=== PATIENT | male | born 1955 | race African-American/Black ===

== ENCOUNTER 2017-04-20 05:52 | Observation (INO) ==
[2017-04-20] MEDS ORDERED: ONDANSETRON 4 MG/2 ML VIAL IV PRN (06:04)
[2017-04-20] MEDS ORDERED: MORPHINE 2 MG/1 ML SYRINGE IV PRN (06:04)
[2017-04-20] MEDS ORDERED: NITROGLYCERIN 2% OINT 1 INCH/GM PACK TOP STA (06:04)
[2017-04-20] MEDS ORDERED: ASPIRIN 325 MG TABLET PO STA (06:04)
[2017-04-20] MEDS ORDERED: LABETALOL 20 MG/4 ML SYRINGE IV STA (06:05)
[2017-04-20] MEDS ORDERED: ENOXAPARIN 120 MG/0.8 ML SYRINGE SUBCUT STA (06:06)
--- NOTE | 2017-04-20 06:09 | Emergency Department Note ---
Arrival - Arrival Chief Complaint: Chest Pain Stated Complaint: chest pain ED Nursing Triage Note: Pt transfer from [facility] with c/o chest pain that started last night. Pt admits to smoking cocaine around 1999 last night. Pt Had elevated trop 0.18,ck-mb 20.3, [id number]. Pt rec'd nitro paste, nitro sublingual, toradol, gi cocktail x2. Mode of Arrival: Stretcher Limitations: No Limitations Source: Patient, Old Records Reviewed, RN Notes Reviewed Time Seen by Provider: 04/20/17 06:04 - History of Present Illness HPI Narrative: Patient is a 61-year-old black male transferred from [facility] for evaluation of chest pain. Patient admits drinking alcohol case of beer, doing cocaine, smoking marijuana, and smoking cigarettes all yesterday. The patient developed substernal chest pain which radiates to his left arm. Pain is not associated with shortness of breath or diaphoresis. Patient does have a history of hypertension. He denies any diabetes mellitus. Patient was seen [facility] and given Toradol and transferred to [place]. Based on previous troponin results here at [place] the patient runs a consistent 0.169 to 0.179 Onset (ago): hour(s) (6) Consistency: constant Severity: moderate Quality: cramping Allergies/Adverse Reactions: Allergies Allergy/AdvReac Type Severity Reaction Status Date / Time No Known Allergies Allergy Unverified 04/20/17 06:07 Home Medications: Home Medications Medication Instructions Recorded Confirmed Type Furosemide Tab [Lasix Tab] 40 mg PO DAILY 06/24/15 06/21/16 History Lisinopril 40 mg PO DAILY 06/24/15 06/21/16 History Aspirin [Ecotrin] 81 mg PO DAILY #30 tablet. 06/27/15 06/21/16 Rx PARoxetine [Paxil] 20 mg PO DAILY #30 tablet 06/27/15 06/21/16 Rx Potassium Chloride Cap/Tab [K Dur] 20 meq PO DAILY #30 tablet 06/27/15 06/21/16 Rx hydrALAZINE TAB [Apresoline Tab] 25 mg PO TID #100 tablet 06/27/15 06/21/16 Rx amLODIPine [Norvasc] 10 mg PO DAILY #30 tablet 06/22/16 Rx Review of System - Review of System 12 point system: reviewed and no additional remarkable complaints except as stated - Review of System Constitutional: Absent: chills, fever Respiratory: Absent: cough, respiratory distress Cardiovascular: Present: chest pain. Absent: palpitations Gastrointestinal: Absent: abdominal pain, nausea, vomiting Medical,Surgical,& Family Hx - Medical History Cardio: History of: CAD, Hypertension, Cardiovascular Problems (Chronically elevated troponin) Psychological: History of: Anxiety Disorders, Depression, Psychiatric/Substance Abuse Tx Respiratory: History of: Obstructive Sleep Apnea Renal: History of: Renal Problems (chronic renal insufficiency) - Surgical History Cardiac Surgeries: Sugical HX of: Cardiac Catheterization Orthopedic Surgeries: Surgical HX of;: Implanted Devices, Spinal Surgery (left and rt. knee replacement), Total Knee Replacement - Family History Family History: Reports;: Family Hypertension - Social History Smoking Status: Current every day smoker Have you smoked in the last 12 months: Yes Frequency of Alcohol Use: Frequently (Heavy) Type of Drug Use: Cocaine, Marijuana Cognitive Capacity: Patient states that he is disabled from total knee replacements and hypertension. Lives With:: Spouse Functional capacity: independent ambulation Exam Vital Signs: Vital Signs Temperature 97.9 F 04/20/17 05:59 Pulse Rate 98 H 04/20/17 05:59 Respiratory Rate 18 04/20/17 06:25 Blood Pressure 175/95 04/20/17 05:59 O2 Sat by Pulse Oximetry 96 04/20/17 05:59 GENERAL: This is a chronically ill-appearing black male in no apparent distress. VITAL SIGNS: Reviewed HEENT: Head is atraumatic and normocephalic. Pupils are equal round react to light. Extraocular movements are intact. Oropharynx is benign with moist mucous membranes. NECK: Neck is soft and supple without tenderness. There are no masses. There is no lymphadenopathy. LUNGS: Lungs are clear to auscultation. Chest rises symmetrically. There is no chest wall tenderness. CV: Heart is regular rate and rhythm without murmurs rubs or gallops. ABDOMEN: Abdomen is soft, nontender to palpation. There are no abdominal abnormal masses palpated. There is no organomegaly. Bowel sounds are present and active. SKIN: Skin is warm and dry. No rash. EXTREMITIES: Patient has full range of motion without tenderness. There is no pedal edema. NEUROLOGIC: Awake alert and oriented 4. Cranial nerves II through XII are grossly intact. Motor is 5 over 5 in all extremities bilaterally. Course - Consultations Consultation #1: Discussed with Dr. Miller. Patient will be admitted to his service. Dr. Miller will assume care upon patient's arrival to [facility]. Time: 07:29 Results - Labs CBC & BMP: 04/20/17 06:00 04/20/17 06:00 Lab Results: I have reviewed the patients labs Labs: Laboratory Tests 04/20/17 06:00 Troponin I 0.254 H - EKG EKG results: interpreted by ERMD - Impressions EKG: Sinus rhythm with a rate of 91, occasional supraventricular premature complexes, nonspecific ST-T wave changes - Diagnostic Findings Procedure: Chest x-ray: image reviewed by me (No infiltrates, no pleural effusions.) Disposition Clinical Impression: Chest pain, Essential hypertension, Cocaine abuse, Alcohol abuse, Nicotine addiction, Marijuana abuse, Unstable angina Case discussed with: patient Disposition: Still a Patient Condition: Stable Time of Disposition: 06:20
--- NOTE | 2017-04-20 06:09 | EKG Report ---
Stationary ECG Study [facility] ER Test Date: 04/20/2017 6:00:52 AM Pat Name: SJ JENKINS Department: Room: 286 Gender: M Ski Topper: : 1955 Requested by: Conrado Roper Order Number: [id number] Reading MD: NERY ROJAS Intervals [place] Rate: 91 P: 91 CT: 161 QRS: 185 QRSD: 106 T: 65 QT: 383 QTc: 432 Interpretive Statements SINUS RHYTHM WITH OCCASIONAL SUPRAVENTRICULAR PREMATURE COMPLEXES ARM LEADS REVERSED Electronically Signed On 04-22-17 13:54:05 CDT by NERY ROJAS [email or web address]
[2017-04-20] MEDS ORDERED: LABETALOL 20 MG/4 ML SYRINGE IV ONE (06:11)
[2017-04-20] MEDS ORDERED: ASPIRIN EC 325 MG TABLET PO ONE (06:11)
[2017-04-20] MEDS ORDERED: ENOXAPARIN 120 MG/0.8 ML SYRINGE SUBCUT ONE (06:11)
[2017-04-20] MEDS ORDERED: NITROGLYCERIN 2% OINT 1 INCH/GM PACK TOP ONE (06:11)
[2017-04-20] MEDS ORDERED: ASPIRIN 325 MG TABLET ONE (06:14)
--- NOTE | 2017-04-20 06:17 | EKG Report ---
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
[2017-04-20 06:27] LABS: Basophils % 0.4 % (0.0-0.8); Eosinophils % 0.6 % (0.00-10.9); Hematocrit 44.8 VOL% (42.0-52.0); Hemoglobin 15.8 GM/DL (14.0-18.0); Immature Granulocytes % 0.3 %; Immature Granulocytes Absolute 0.02 #; Lymphocytes # 2.8 10*3/uL (1.4-4.0); Lymphocytes % 41.2 % (21.2-54.2); Mean Corpuscular HGB Conc 35.3 GM/DL (32-36); Mean Corpuscular Hemoglobin 31 PG (27-34); Mean Corpuscular Volume 88.5 FL (87-102); Mean Platelet Volume 10.4 FL (9.6-12.0); Monocytes # 1.1 10*3/uL (0.11-0.8); Monocytes % 16.4 % (1.7-12.7); Neutrophils # 2.8 10*3/uL (1.4-7.4); Neutrophils % 41.1 % (38.7-73.9); Platelet Count 207 T/CUMM (130-400); Red Blood Count 5.06 MC/CUMM (3.8-5.5); Red Cell Distribution Width 14.9 % (9.3-17.3); White Blood Count 6.7 T/CUMM (4-12)
[2017-04-20 06:37] LABS: INR 1.1; PT Patient Result 11.7 SECS; Partial Thromboplastin Time 31.3 SECS (0-40)
[2017-04-20 06:54] LABS: Albumin 3.6 G/DL (3.4-5.0); Bilirubin,Total 1.3 MG/DL (0.2-1.0); Osmolality,Calculated 276.5 MOS/KG (273-304); Potassium 3.2 MMOL/L (3.5-5.1); Total Protein 7.1 G/DL (6.4-8.3)
[2017-04-20 06:57] LABS: Eosinophils 1 % (0-10); Hypochromasia 1+; Lymphocytes 37 % (20-55); Platelet Estimate Normal; Segmented Neutrophils 46 % (50-85); Total Cells Counted 100
[2017-04-20] MEDS ORDERED: NITROGLYCERIN SL 0.4 MG TABLET SL PRN (07:39)
[2017-04-20] MEDS ORDERED: MAGNESIUM SULF RIDER 4 GM in PREMIX 1 EACH IV PRN (08:42)
[2017-04-20] MEDS ORDERED: MAGNESIUM SULF RIDER 2 GM in PREMIX 1 EACH IV PRN (08:42)
[2017-04-20] MEDS: SODIUM CHLORIDE 0.9% 1,000 ML IV SCH ×2 (09:26→16:17)
--- NOTE | 2017-04-20 10:52 | EKG Report ---
Stationary ECG Study [facility] Test Date: 04/20/2017 9:04:56 AM Pat Name: SJ JENKINS Department: Room: 286 Gender: M Patient Access Coordinator: : 1955 Requested by: Conrado Roper Order Number: [id number] Reading MD: JATIN KUO Intervals [place] Rate: 76 P: 98 VT: 162 QRS: 32 QRSD: 102 T: 130 QT: 437 QTc: 468 Interpretive Statements SINUS RHYTHM ST DEVIATION AND MODERATE T-WAVE ABNORMALITY, CONSIDER ANTEROLATERAL ISCHEMIA Electronically Signed On 04-23-17 12:47:49 CDT by JATIN KUO [email or web address]
[2017-04-20] MEDS ORDERED: NITROGLYCERIN 2% OINT 1 INCH/GM PACK TOP SCH (12:00)
--- NOTE | 2017-04-20 12:50 | Cardiology History & Physical ---
Assessment and Plan (1) Chest pain Status: Acute Assessment and plan: This appears to be secondary to the patient's cocaine and other substance abuse. We will rule out myocardial infarction. He had cardiac catheterization with a similar presentation a couple of years ago did not show any significant coronary artery disease. We discussed the implications of his substance abuse today. Current Visit: Yes (2) Abnormal cardiac enzyme level Status: Resolved Assessment and plan: The patient's cardiac enzymes usually have a troponin of around 0.2. That is not significantly changed this time. This is probably related to his cocaine abuse. Current Visit: No (3) Alcohol abuse Status: Acute Current Visit: Yes (4) Cocaine abuse Status: Acute Current Visit: Yes (5) Marijuana abuse Status: Acute Current Visit: Yes (6) Nicotine addiction Status: Acute Current Visit: Yes (7) Cocaine abuse Status: Acute Current Visit: No (8) HTN (hypertension) Problem details: Uncontrolled Status: Chronic Current Visit: No (9) Noncompliance Problem details: Admits to not taking medications as prescribed or 2 following up regularly with his doctor Status: Chronic Current Visit: No History of Present Illness History of present illness: Mr. Acevedo is a 61 year old male with a history of hypertension and polysubstance abuse. He has seen Dr. Stahl in the past. Patient came into the hospital a couple of years ago with hypertension, medication noncompliance, and drug use including cocaine and cannabinoids. He was having some chest pain and some mildly elevated cardiac enzymes associated with his drug use and had cardiac catheterization at that time. He had angiographically normal coronary arteries and his left ventricular systolic function was greater than 70%. Unfortunately, the patient "relapsed" using multiple substances, including cocaine, opiates, and cannabinoids and once again this caused chest pain symptoms. This is in the left upper chest. Symptoms are moderate in severity and transiently resolved. At the time I was seeing him he was not having any ongoing chest discomfort. He was essentially feeling back to normal. The patient believes that his symptoms are secondary to his relapse using cocaine. He denies any palpitations or syncope. He denies any fever, chills, or cough. He denies any orthopnea, PND, or peripheral edema. Home Medications Medication Instructions Recorded Confirmed Type Furosemide Tab [Lasix Tab] 40 mg PO DAILY 06/24/15 06/21/16 History Lisinopril 40 mg PO DAILY 06/24/15 06/21/16 History Aspirin [Ecotrin] 81 mg PO DAILY #30 tablet. 06/27/15 06/21/16 Rx PARoxetine [Paxil] 20 mg PO DAILY #30 tablet 06/27/15 06/21/16 Rx Potassium Chloride Cap/Tab [K Dur] 20 meq PO DAILY #30 tablet 06/27/15 06/21/16 Rx hydrALAZINE TAB [Apresoline Tab] 25 mg PO TID #100 tablet 06/27/15 06/21/16 Rx amLODIPine [Norvasc] 10 mg PO DAILY #30 tablet 06/22/16 Rx Home Medications Medication Instructions Recorded Confirmed Type Furosemide Tab [Lasix Tab] 40 mg PO DAILY 06/24/15 06/21/16 History Lisinopril 40 mg PO DAILY 06/24/15 06/21/16 History Aspirin [Ecotrin] 81 mg PO DAILY #30 tablet. 06/27/15 06/21/16 Rx PARoxetine [Paxil] 20 mg PO DAILY #30 tablet 06/27/15 06/21/16 Rx Potassium Chloride Cap/Tab [K Dur] 20 meq PO DAILY #30 tablet 06/27/15 06/21/16 Rx hydrALAZINE TAB [Apresoline Tab] 25 mg PO TID #100 tablet 06/27/15 06/21/16 Rx amLODIPine [Norvasc] 10 mg PO DAILY #30 tablet 06/22/16 Rx Allergies Allergy/AdvReac Type Severity Reaction Status Date / Time No Known Allergies Allergy Unverified 04/20/17 06:07 12 point system: reviewed and no additional remarkable complaints except as stated Medical,Surgical,& Family Hx - Medical History Cardio: History of: CAD, Hypertension, Cardiovascular Problems (Chronically elevated troponin) No history of: Valvular Heart Disease Psychological: History of: Anxiety Disorders, Depression, Psychiatric/Substance Abuse Tx Respiratory: History of: Obstructive Sleep Apnea Renal: History of: Renal Problems (chronic renal insufficiency) Musculoskeletal: No history of: Amputation, Back/Neck Problems, Degenerative Disk Disease, Herniated Disk, Osteoporosis - Surgical History Cardiac Surgeries: Sugical HX of: Cardiac Catheterization Patient Denies: Femoral-Popliteal Bypass Graft, Cardiac Surgery, Carotid Endarterectomy, Internal Defibrillator, Vascular Access Devices Thoracic Surgeries: Patient denies;: Lobectomy Neurologic Surgeries: Patient denies: Neurologic Surgery HEENT Surgeries: Patient denies: Carotid Endarterectomy Abdominal Surgeries: Patient denies: Abdominal Surgery, Splenectomy Orthopedic Surgeries: Surgical HX of;: Implanted Devices, Spinal Surgery (left and rt. knee replacement), Total Knee Replacement Patient denies;: Total Hip Replacement - Family History Family History: Reports;: Family Hypertension Denies;: Family Cancer, Family Diabetes, Family Heart Disease, Family Stroke - Social History Smoking Status: Current every day smoker Frequency of Alcohol Use: Frequently Type of Drug Use: Cocaine, Marijuana Cardiology Physical Exam - Constitutional Vitals: Vital Signs Temp Pulse Resp BP Pulse Ox 98.1 F 76 18 162/97 98 04/20/17 11:54 04/20/17 11:54 04/20/17 11:54 04/20/17 11:54 04/20/17 11:54 Intake and Output 04/19/17 04/20/17 04/20/17 23:59 07:59 15:59 Other: Weight 117.934 kg 121.818 kg Patient Weight 04/20/17 23:59 Weight 121.818 kg Exam: General: Appears well developed, well nourished, no apparent distress HEENT: Normocephalic, atraumatic Neck: Supple Neck, Midline Trachea, No Bruit, No JVD Cardiac: Regular rhythm, No Murmur, no gallop, no rub Lungs: Clear to auscultation, No Wheeze, Rales, Rhonchi Neuro: Cranial Nerve 2-12 Intact, Motor Function Grossly Intact Abdomen: Soft, Active Bowel Sounds, No Masses, No Pulsations/Bruits Skin: Normal color, no rash Extremities: No Clubbing, No Cyanosis, No Edema, Normal Upper Extr. Pulses Musculoskeletal: No acute abnormality noted Psychiatric: The patient does not appear to be anxious or depressed Result/EKG - Labs CBC & BMP: 04/20/17 06:00 04/20/17 06:00 Lab Results: I have reviewed the past 24 hour labs Labs: Laboratory Results - last 24 hr 04/20/17 04/20/17 04/20/17 06:00 06:00 06:00 WBC 6.7 RBC 5.06 Hgb 15.8 Hct 44.8 MCV 88.5 MCH 31 MCHC 35.3 RDW 14.9 Plt Count 207 MPV 10.4 Neut % (Auto) 41.1 Lymph % (Auto) 41.2 [place] % (Auto) 16.4 H Eos % (Auto) 0.6 Baso % (Auto) 0.4 Neut # (Auto) 2.8 Lymph # (Auto) 2.8 [place] # (Auto) 1.1 H Eos # (Auto) 0.0 Baso # (Auto) 0.0 Total Counted 100 Immature Gran % 0.3 Nucleated RBC % 0.0 Immature Gran # 0.02 Segmented Neutrophils 46 L Lymphocytes 37 Monocytes 16 H Eosinophils 1 Nucleated RBCs # 0.00 Platelet Estimate Normal Hypochromasia 1+ INR 1.1 PT Patient/Control Mix 11.7 Circ Anticoag PTT 31.3 Sodium 139 Potassium 3.2 L Chloride 101 Carbon Dioxide 29 Anion Gap 12.2 BUN 13 Creatinine 1.20 GFR Calculation 107 BUN/Creatinine Ratio 10.00 Glucose 90 Calculated Osmolality 276.5 Calcium 8.0 L Total Bilirubin 1.30 H AST 37 ALT 21 Alkaline Phosphatase 59 Troponin I Total Protein 7.1 Albumin 3.6 Globulin 3.5 Albumin/Globulin Ratio 1.0 L 04/20/17 04/20/17 06:00 09:15 WBC RBC Hgb Hct MCV MCH MCHC RDW Plt Count MPV Neut % (Auto) Lymph % (Auto) [place] % (Auto) Eos % (Auto) Baso % (Auto) Neut # (Auto) Lymph # (Auto) [place] # (Auto) Eos # (Auto) Baso # (Auto) Total Counted Immature Gran % Nucleated RBC % Immature Gran # Segmented Neutrophils Lymphocytes Monocytes Eosinophils Nucleated RBCs # Platelet Estimate Hypochromasia INR PT Patient/Control Mix Circ Anticoag PTT Sodium Potassium Chloride Carbon Dioxide Anion Gap BUN Creatinine GFR Calculation BUN/Creatinine Ratio Glucose Calculated Osmolality Calcium Total Bilirubin AST ALT Alkaline Phosphatase Troponin I 0.254 H 0.206 H Total Protein Albumin Globulin Albumin/Globulin Ratio - EKG EKG results: interpreted by me Quality Measures - Stroke Symptom Onset Unknown: No
--- NOTE | 2017-04-20 12:51 | XRay Report ---
Exam: XR chest 2V Indication: Chest pain , cardiomegaly Comparison study: June 22, 2016 Findings: Cardiac silhouette is mildly enlarged, similar to prior. Mediastinal contours appear within normal limits. Mild elevation left hemidiaphragm is similar to prior. There is no focal consolidation, pneumothorax or pleural effusion identified. There is improved aeration within the perihilar regions and lung bases, which may represent resolution of interstitial edema. Impression: No acute cardiopulmonary process. Slight improved aeration within the lung bases when compared to prior. Otherwise, no significant change from prior. PROCEDURE INTERPRETED AT [facility] DEPARTMENT OF RADIOLOGY Final Report Signed by: Anderson Allan
[2017-04-20] MEDS ORDERED: POTASSIUM CHLORIDE 20 MEQ TABLET PO ONE (14:08)
[2017-04-20] MEDS: LISINOPRIL 20 MG TABLET PO SCH (16:16)
[2017-04-20] MEDS: POTASSIUM CHLORIDE 20 MEQ TABLET PO SCH (16:16)
[2017-04-20] MEDS: CLORAZEPATE 7.5 MG TABLET PO SCH ×2 (17:44→21:31)
[2017-04-20] MEDS ORDERED: ENOXAPARIN 120 MG/0.8 ML SYRINGE SUBCUT SCH (21:00)
[2017-04-21] MEDS: SODIUM CHLORIDE 0.9% 1,000 ML IV SCH ×2 (00:32→08:48)
[2017-04-21 05:01] LABS: Risk Ratio 3.34; VLDL CHOLESTEROL 19.6 MG/DL
[2017-04-21] MEDS: CLORAZEPATE 7.5 MG TABLET PO SCH ×2 (08:48→14:24)
[2017-04-21] MEDS: POTASSIUM CHLORIDE 20 MEQ TABLET PO SCH (08:48)
[2017-04-21] MEDS: LISINOPRIL 20 MG TABLET PO SCH (08:49)
[2017-04-21] MEDS ORDERED: ASPIRIN EC 81 MG TABLET PO SCH (09:00)
[2017-04-21] MEDS ORDERED: PARoxetine 20 MG TABLET PO SCH (09:00)
[2017-04-21] MEDS ORDERED: amLODIPine 10 MG TABLET PO SCH (09:00)
--- NOTE | 2017-04-21 12:55 | Discharge Summary ---
Hospital Course - Hospital Course Hospital Course: The patient is a 61-year-old male with a history of hypertension and polysubstance abuse. He has seen Dr. Stahl in the past. In 2014 he came into the hospital with chest pain symptoms after using multiple drugs including cocaine. He had a mildly elevated cardiac enzyme level and cardiac catheterization was performed. At that time he had angiographically normal coronary arteries and normal left ventricular systolic function at greater than 70% ejection fraction. The patient came into the hospital at this time with a "relapse" of using cocaine, opiates, and cannabinoids. This once again produced chest pain symptoms. He had a very slight bump in cardiac enzymes ( troponin 0.254) at the time of his hospital admission which subsequently fell over the course of his hospital stay. He had no further episodes of chest discomfort or other complaints. He is feeling back to normal. In light of the fact that he had a similar presentation less than 2 years ago with cardiac catheterization which was normal, and we know the precipitating cause of his symptoms, I do not think repeat cardiac evaluation is required at this time. Of note, his potassium was quite low at the time of admission. He is on Lasix as an outpatient. Since he had normal left ventricular systolic function, I think we can stop this medication. I have counseled the patient on avoiding the illicit drugs that seem to be producing his symptom. I think he is stable for discharge home. I think he can follow-up with his primary physician on a routine basis. Diagnosis - Discharge Diagnosis (1) Chest pain Status: Acute (2) Abnormal cardiac enzyme level Status: Resolved (3) Alcohol abuse Status: Acute (4) Cocaine abuse Status: Acute (5) Marijuana abuse Status: Acute (6) Nicotine addiction Status: Acute (7) Cocaine abuse Status: Acute (8) HTN (hypertension) Status: Chronic (9) Noncompliance Status: Chronic Discharge Plan - Discharge Data Disposition: Disch To Home/Self Care - Discharge Medications Continue Lisinopril 40 mg PO DAILY hydrALAZINE TAB [Apresoline Tab] 25 mg PO TID #100 tablet Potassium Chloride Cap/Tab [K Dur] 20 meq PO DAILY #30 tablet PARoxetine [Paxil] 20 mg PO DAILY #30 tablet Aspirin [Ecotrin] 81 mg PO DAILY #30 tablet. amLODIPine [Norvasc] 10 mg PO DAILY #30 tablet Discontinued Furosemide Tab [Lasix Tab] 40 mg PO DAILY - Follow Up or Referral - Forms/Instructions Exam - Constitutional Vitals: Period Temp Pulse Resp BP Sys/[place] Pulse Ox Last 24 Hr 96.2 F-99.2 F 18-76 16-20 140-182/83-115 94-98 Discharge Results Labs on day of discharge: Labs from last 24 hours 04/21/17 04/20/17 03:44 12:23 Troponin I 0.177 H Triglycerides 98 Cholesterol 127 LDL Cholesterol 83.0 VLDL Cholesterol 19.6 HDL Cholesterol 38 L Heart Disease Risk Ratio 3.34 DS: Provider Date of admission: 04/20/17 07:36 Primary care physician: . No PCP Attending physician on admission: George Miller MD Discharging clinician: George Miller MD
[2017-04-21 13:12] VITALS: BP 198/119
[2017-04-21] MEDS ORDERED: cloNIDine 0.1 MG TABLET PO ONE (14:16)
--- NOTE | 2017-04-23 12:52 | EKG Report ---
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
== END 2017-04-21 17:41 | disposition home or self-care (01) ==
LOC: EDUNIT# → EDBD → N.EDINP 05:52 → N.ED 05:52 → N.TELEN 08:11
PROVIDERS: ADMIT Internal Medicine Cardiovascular Disease; ATTEND Internal Medicine Cardiovascular Disease

== ENCOUNTER 2021-02-22 01:57 | Inpatient (IN) ==
[2021-02-22] MEDS ORDERED: DEXTROSE 50% 25 GM/50 ML VIAL IV PRN (03:36)
[2021-02-22] MEDS ORDERED: ACETAMINOPHEN 325 MG TABLET PO PRN (03:36)
[2021-02-22] MEDS ORDERED: MORPHINE 4 MG/1 ML VIAL IV PRN (03:36)
[2021-02-22] MEDS ORDERED: ONDANSETRON 4 MG/2 ML VIAL IV PRN (03:36)
[2021-02-22] MEDS ORDERED: GLUCAGON 1 MG VIAL IM PRN (03:36)
[2021-02-22] MEDS ORDERED: hydrALAZINE 20 MG/1 ML VIAL IV PRN (03:47)
[2021-02-22] MEDS ORDERED: POTASSIUM CHLORIDE 20 MEQ TABLET PO ONE ×2 (04:31→10:24)
[2021-02-22 07:42] LABS: Barbiturates Screen,Urine Negative (Negative); Benzodiazepines Screen,Urine Negative (Negative); Cannabinoid Screen,Urine Negative (Negative); Opiate Screen,Urine Positive (Negative); Phencyclidine Screen,Urine Negative (Negative)
[2021-02-22 07:43] LABS: Basophils % 0.4 % (0.0-0.8); Eosinophils # 0.2 10*3/uL (0.0-0.87); Eosinophils % 2.6 % (0.00-10.9); Hematocrit 38.4 VOL% (42.0-52.0); Hemoglobin 13.4 GM/DL (14.0-18.0); Immature Granulocytes % 0.3 %; Immature Granulocytes Absolute 0.02 #; Lymphocytes # 2.3 10*3/uL (1.4-4.0); Lymphocytes % 31.5 % (21.2-54.2); Mean Corpuscular HGB Conc 34.9 GM/DL (32-36); Mean Corpuscular Volume 87.1 FL (87-102); Mean Platelet Volume 9.3 FL (9.6-12.0); Monocytes % 13.7 % (1.7-12.7); Neutrophils % 51.5 % (38.7-73.9); Platelet Count 279 T/CUMM (130-400); Red Blood Count 4.41 MC/CUMM (3.8-5.5); Red Cell Distribution Width 16.4 % (9.3-17.3); White Blood Count 7.4 T/CUMM (4-12)
[2021-02-22 08:02] LABS: Albumin 2.9 G/DL (3.4-5.0); Bilirubin,Total 1.5 MG/DL (0.2-1.0); Calcium 8.1 MG/DL (8.5-10.1); Osmolality,Calculated 281.5 MOS/KG (273-304); Potassium 3.2 MMOL/L (3.5-5.1); Total Protein 7.1 G/DL (6.4-8.2)
[2021-02-22 08:03] LABS: Risk Ratio 4.17
[2021-02-22] MEDS: PANTOPRAZOLE 40 MG TABLET PO SCH (08:28)
[2021-02-22] MEDS ORDERED: cloNIDine 0.1 MG TABLET PO PRN (09:12)
[2021-02-22] MEDS ORDERED: FUROSEMIDE 40 MG/4 ML VIAL IV ONE (10:28)
[2021-02-22] MEDS ORDERED: ASPIRIN EC 325 MG TABLET PO SCH (10:33)
[2021-02-22] MEDS: DOXAZOSIN 1 MG TABLET PO SCH (20:53)
[2021-02-23] MEDS ORDERED: ZALEPLON 5 MG CAPSULE ONE (01:30)
[2021-02-23] MEDS: ZALEPLON 5 MG CAPSULE PO SCH ×2 (01:32→20:30)
[2021-02-23 05:21] LABS: Basophils % 0.2 % (0.0-0.8); Eosinophils # 0.2 10*3/uL (0.0-0.87); Eosinophils % 3.5 % (0.00-10.9); Hematocrit 38.1 VOL% (42.0-52.0); Immature Granulocytes % 0.2 %; Immature Granulocytes Absolute 0.01 #; Lymphocytes # 2.4 10*3/uL (1.4-4.0); Lymphocytes % 35.5 % (21.2-54.2); Mean Corpuscular HGB Conc 34.1 GM/DL (32-36); Mean Platelet Volume 9.6 FL (9.6-12.0); Neutrophils % 48.6 % (38.7-73.9); Platelet Count 284 T/CUMM (130-400); Red Blood Count 4.28 MC/CUMM (3.8-5.5); Red Cell Distribution Width 16.7 % (9.3-17.3); White Blood Count 6.7 T/CUMM (4-12)
[2021-02-23 05:37] LABS: Calcium 8.2 MG/DL (8.5-10.1); Potassium 3.3 MMOL/L (3.5-5.1)
[2021-02-23] MEDS: POTASSIUM CHLORIDE 20 MEQ TABLET PO PRN ×2 (06:10→06:59)
[2021-02-23] MEDS ORDERED: DIGOXIN 0.5 MG/2 ML AMP IV ONE ×2 (08:18→13:30)
[2021-02-23] MEDS ORDERED: LORazepam 2 MG/1 ML VIAL IV ONE ×2 (08:22→13:30)
[2021-02-23] MEDS ORDERED: POTASSIUM CHLORIDE 20 MEQ TABLET PO ONE (08:23)
[2021-02-23] MEDS ORDERED: BISACODYL 5 MG TABLET PO ONE (08:34)
[2021-02-23] MEDS ORDERED: DILTIAZEM CD 120 MG CAPSULE PO ONE (08:44)
[2021-02-23] MEDS: PANTOPRAZOLE 40 MG TABLET PO SCH (08:58)
[2021-02-23] MEDS: APIXABAN 5 MG TABLET PO SCH ×2 (08:58→20:09)
[2021-02-23] MEDS ORDERED: METHOCARBAMOL 750 MG TABLET PO PRN (09:12)
[2021-02-23] MEDS ORDERED: rOPINIRole 0.25 MG TABLET PO PRN (09:12)
[2021-02-23] MEDS ORDERED: HydrOXYzine PAMOATE 25 MG CAPSULE PO PRN (09:12)
[2021-02-23] MEDS ORDERED: diphenhydrAMINE 50 MG/1 ML VIAL IV PRN (09:12)
[2021-02-23] MEDS ORDERED: FUROSEMIDE 40 MG/4 ML VIAL IV ONE (09:23)
[2021-02-23] MEDS: LORazepam 1 MG TABLET PO SCH ×4 (09:33→20:30)
[2021-02-23] MEDS: DILTIAZEM INJ 100 MG in SODIUM CHLORIDE 0.9% 100 ML IV SCH ×2 (10:00→15:10)
[2021-02-23] MEDS ORDERED: DILTIAZEM CD 240 MG CAPSULE PO SCH (10:00)
[2021-02-23] MEDS: THIAMINE 200 MG/2 ML VIAL IV SCH (10:15)
[2021-02-23] MEDS: FOLIC ACID 1 MG TABLET PO SCH (10:15)
[2021-02-23 10:28] LABS: Folate 12.7 NG/ML (5.38-24.0)
[2021-02-23] MEDS: DOXAZOSIN 1 MG TABLET PO SCH (20:09)
[2021-02-24] MEDS: LORazepam 1 MG TABLET PO SCH ×3 (01:32→03:30)
[2021-02-24] MEDS: DILTIAZEM INJ 100 MG in SODIUM CHLORIDE 0.9% 100 ML IV SCH ×2 (03:25→10:27)
[2021-02-24 06:25] LABS: Basophils % 0.3 % (0.0-0.8); Eosinophils # 0.1 10*3/uL (0.0-0.87); Hematocrit 41.1 VOL% (42.0-52.0); Hemoglobin 14.3 GM/DL (14.0-18.0); Immature Granulocytes % 0.3 %; Immature Granulocytes Absolute 0.02 #; Lymphocytes # 1.4 10*3/uL (1.4-4.0); Lymphocytes % 17.4 % (21.2-54.2); Mean Corpuscular HGB Conc 34.8 GM/DL (32-36); Mean Corpuscular Volume 87.6 FL (87-102); Mean Platelet Volume 9.1 FL (9.6-12.0); Monocytes % 13.8 % (1.7-12.7); Neutrophils % 67.2 % (38.7-73.9); Platelet Count 279 T/CUMM (130-400); Red Blood Count 4.69 MC/CUMM (3.8-5.5); Red Cell Distribution Width 16.1 % (9.3-17.3); White Blood Count 7.9 T/CUMM (4-12)
[2021-02-24 06:33] LABS: Calcium 8.6 MG/DL (8.5-10.1); Osmolality,Calculated 275.7 MOS/KG (273-304); Potassium 3.3 MMOL/L (3.5-5.1)
[2021-02-24] MEDS ORDERED: POTASSIUM CHLORIDE 20 MEQ TABLET PO ONE (06:57)
[2021-02-24] MEDS ORDERED: MAGNESIUM SULF RIDER 4 GM in PREMIX 1 EACH IV ONE (06:57)
[2021-02-24] MEDS ORDERED: chlordiazePOXIDE 25 MG CAPSULE PO SCH (08:00)
[2021-02-24] MEDS: APIXABAN 5 MG TABLET PO SCH ×2 (09:00→20:39)
[2021-02-24] MEDS: FOLIC ACID 1 MG TABLET PO SCH (09:00)
[2021-02-24] MEDS ORDERED: DILTIAZEM CD 180 MG CAPSULE PO SCH (09:00)
[2021-02-24] MEDS: PANTOPRAZOLE 40 MG TABLET PO SCH (09:01)
[2021-02-24] MEDS: MIRTAZAPINE 15 MG TABLET PO SCH (09:01)
[2021-02-24] MEDS: THIAMINE 200 MG/2 ML VIAL IV SCH (09:01)
[2021-02-24] MEDS: MAGNESIUM OXIDE 400 MG TABLET PO SCH ×3 (09:40→20:39)
[2021-02-24] MEDS ORDERED: DIGOXIN 0.5 MG/2 ML AMP IV ONE ×2 (09:55→19:00)
[2021-02-24] MEDS: DILTIAZEM 90 MG TABLET PO SCH ×3 (11:52→23:54)
[2021-02-24] MEDS: POTASSIUM CHLORIDE 20 MEQ TABLET PO PRN (11:52)
[2021-02-24] MEDS: chlordiazePOXIDE 25 MG CAPSULE PO SCH ×3 (11:53→23:54)
[2021-02-24] MEDS ORDERED: FUROSEMIDE 40 MG/4 ML VIAL IV ONE (14:04)
[2021-02-24] MEDS: ZALEPLON 5 MG CAPSULE PO SCH (20:39)
[2021-02-24] MEDS: DOXAZOSIN 1 MG TABLET PO SCH (20:39)
[2021-02-24] MEDS ORDERED: carvediloL 6.25 MG TABLET PO SCH (21:00)
[2021-02-25] MEDS: DILTIAZEM 90 MG TABLET PO SCH (05:45)
[2021-02-25] MEDS: chlordiazePOXIDE 25 MG CAPSULE PO SCH ×2 (05:49→13:30)
[2021-02-25 06:19] LABS: Basophils % 0.3 % (0.0-0.8); Eosinophils # 0.1 10*3/uL (0.0-0.87); Eosinophils % 1.7 % (0.00-10.9); Hematocrit 43.1 VOL% (42.0-52.0); Hemoglobin 14.8 GM/DL (14.0-18.0); Immature Granulocytes % 0.2 %; Immature Granulocytes Absolute 0.01 #; Lymphocytes # 1.7 10*3/uL (1.4-4.0); Lymphocytes % 27.8 % (21.2-54.2); Mean Corpuscular HGB Conc 34.3 GM/DL (32-36); Mean Corpuscular Volume 89.2 FL (87-102); Mean Platelet Volume 9.4 FL (9.6-12.0); Monocytes % 15.5 % (1.7-12.7); Neutrophils % 54.5 % (38.7-73.9); Platelet Count 296 T/CUMM (130-400); Red Blood Count 4.83 MC/CUMM (3.8-5.5); Red Cell Distribution Width 16.4 % (9.3-17.3)
[2021-02-25 07:04] LABS: Calcium 9.1 MG/DL (8.5-10.1); Osmolality,Calculated 275.7 MOS/KG (273-304); Potassium 3.7 MMOL/L (3.5-5.1)
[2021-02-25] MEDS: APIXABAN 5 MG TABLET PO SCH (08:12)
[2021-02-25] MEDS: FOLIC ACID 1 MG TABLET PO SCH (08:13)
[2021-02-25] MEDS: MAGNESIUM OXIDE 400 MG TABLET PO SCH (08:13)
[2021-02-25] MEDS: THIAMINE 200 MG/2 ML VIAL IV SCH (08:14)
[2021-02-25] MEDS: PANTOPRAZOLE 40 MG TABLET PO SCH (08:14)
[2021-02-25] MEDS ORDERED: POTASSIUM CHLORIDE 20 MEQ TABLET PO SCH (09:00)
[2021-02-25] MEDS ORDERED: DIGOXIN 0.5 MG/2 ML AMP IV ONE (09:00)
[2021-02-25] MEDS ORDERED: carvediloL 12.5 MG TABLET PO SCH (09:00)
[2021-02-25] MEDS ORDERED: DILTIAZEM CD 180 MG CAPSULE PO SCH (09:00)
[2021-02-25] MEDS: MIRTAZAPINE 15 MG TABLET PO SCH (09:13)
[2021-02-25 12:12] VITALS: BP 148/68
[2021-02-26] MEDS ORDERED: chlordiazePOXIDE 10 MG CAPSULE PO SCH (12:00)
== END 2021-02-25 13:47 | disposition home or self-care (01) | DRG 309 ==
LOC: N.TELES → SUATTDRO 03:19
PROVIDERS: ADMIT Internal Medicine; ATTEND Phlebology